=== PATIENT | male | born 1975 | race African-American/Black ===

== ENCOUNTER → 2016-11-30 | Outpatient (CLI) | payer OTHER ==
[~2016-11-30] VITALS: Ht 175.3 cm; Wt 78.1 kg
[~2016-11-30] MED LIST: AMBIEN 10 MG TA10 MG PO; BUDEPRION SR100 MG; BUDEPRION XL300 MG PO; BUPROPION XL150 MG PO; CYMBALTA20 MG PO; DEPAKENE250 MG; DEPAKENE250 MG PO; DESYREL50 MG PO; ERYTHROMYCIN E3.5 G1 OP; IBUPROFEN 600600 M1 PO; LEXAPRO 10 MG T10 M1 PO; LEXAPRO 10 MG T10 MG PO; LEXAPRO20 MG PO; LUNESTA3 MG PO; METHADONE HCL5 MG PO; NEURONTIN 300300 M1 PO; NEURONTIN 300M300 M2 PO; NORCO 5-325 TA1 EACH PO; PERCOCET; RESTORIL15 MG PO; TRAZODONE HCL100 MG PO; ZOFRAN ODT4 MG PO
[2016-11-30 08:18] VITALS: BP 137/76
== END | disposition home or self-care (01) ==
LOC: PAIN 06:47
DX: R51 Headache (principal); G89.29 Other chronic pain; Z98.890 Other specified postprocedural states

== ENCOUNTER → 2017-08-01 | Outpatient (CLI) | payer OTHER ==
[~2017-08-01] VITALS: Ht 175.3 cm; Wt 82.8 kg
--- NOTE | ~2017-08-01 | HPC ---
[facility] [address] [place] [address] PAIN MANAGEMENT CONSULTATION Name: MARY KATEPEEWEE Rai CASEY Room #: REG [facility]#: [id number] Admission: 08/01/17 Attend Phys: Jeff Nixon DO Discharge: Date of : 79 Report #: [id number] THIS REPORT FOR: //name// CC: FAM physician/PCP Jeff Pettit MD DATE OF SERVICE: 08/01/2017 REFERRING PHYSICIAN: Yannick Moya MD. CHIEF COMPLAINT: Chronic headaches. HISTORY OF PRESENT ILLNESS: As you know, the patient is a 41-year-old male who returns today in followup visit, now reporting pain score of 6/10. Despite this elevated pain score, he believes he is doing better overall. He is taking his medications appropriately and is having no side effects. He states that he has begun to do much more activities outside and he is very excited about his pain improvement. He recently was seen by his neurosurgeon, who advised the patient the ventricular shunt was working well and that surgery would not resolve his symptoms. It is believed his symptoms are exacerbated with changes in barometric pressure. Now that he knows that there are no major complications, he does wish to continue with current therapy. He will keep in touch with his neurosurgeon if changes in vision or headache worsens. ALLERGIES: PHENERGAN AND TOPIRAMATE. CURRENT MEDICATIONS: Methadone 5 mg 3 times a day; gabapentin 300 mg in the morning, 300 mg at noon, 600 mg at night; trazodone 150 mg p.o. at bedtime; duloxetine 30 mg once a day. SOCIAL HISTORY: The patient continues to smoke. He has extensive tobacco abuse history. Denies IV or illicit drug use. Denies any chronic alcohol use. Unaccompanied today. IMAGING: No new imaging available. PLAN: The patient has no osteoarthritis, no rheumatoid arthritis. His pain intensity is 6/10. He is not a fall risk, has not had a fall in the last 6 months. He is not on any blood thinners, not being treated for hypertension. He is on chronic opioids and is under contract with [facility]. Contract is renewed each year. He has a high potential for abuse and we monitor closely. His functional assessment tool shows pain impact score 53/70, severe. PHYSICAL EXAMINATION: [address] [address] PAIN MANAGEMENT CONSULTATION Name: PEEWEE HARTMANN Room #: [facility]#: [id number] Admission: 08/01/17 Attend Phys: Jeff Nixon DO Discharge: Date of : 79 Report #: [id number] VITAL SIGNS: Blood pressure 135/91, pulse 94, respiratory rate 16 and unlabored. The patient is 99% on room air. Height 5 feet 9 inches tall, weight 182.6 pounds, BMI calculated 27.0. GENERAL: Well-developed, well-nourished, well-hydrated, 41-year-old male, appearing his stated age. Pain is rated at 6/10. HEENT: Normocephalic, atraumatic. There are noted well-healed surgical scars over the calvarium. His pupils are equal and reactive. Sclerae nonicteric. EXTREMITIES: Show no clubbing, no cyanosis, no edema. ASSESSMENT: 1. Chronic headache secondary to intracerebral pressure changes. 2. Variable ventriculoperitoneal shunt complications. 3. Continued tobacco abuse. 4. Chronic intractable pain. PLAN: 1. The patient returns today in followup visit indicating that the recent exacerbation of his symptoms appear to be related to barometric pressure changes. The patient indicates his barometric pressure changes do change the cerebral spinal fluid pressure and thus leads to increased headache pain. He has been advised by his neurosurgeon not to do any changes in the HOSPICE AIDE shunt at this time. The patient states he understands. We will understand that his symptoms may exacerbate during the springtime and in the summer with changes in storms, but understands that this may be a possibility, does not wish to make any changes in therapy. 2. The patient has requested refills of his medications as he does find them beneficial. He is at the lowest most effective dose. We have provided the refills as follows: 3. The patient was provided prescription of methadone 5 mg dose 1 tab p.o. t.i.d. I have given the patient #90 releases of today, 4 weeks from today, 8 weeks from today. 4. The patient was provided refill prescription of gabapentin 300 mg dose, 1 tab in the morning, 1 tab at noon, 2 tabs at night, #120, 2 refills, 3 months' worth of medication. 5. The patient and I had a long discussion again about smoking cessation. I believe it is extremely important that patient look towards decreasing this activity. It is well known that this activity can exacerbate pain and we have requested the patient began discontinuation. He is looking into options. 5. We will see the patient back in followup visit 3 months. <ELECTRONICALLY SIGNED> By: Jeff Nixon DO 08/02/17 0845 [id number] Jeff Nixon DO /nt
[2017-08-01 10:17] VITALS: BP 135/91
== END ==
LOC: PAIN 07:04
DX: G43.919 Migraine, unspecified, intractable, without status migrainosus (principal); F17.200 Nicotine dependence, unspecified, uncomplicated; G89.29 Other chronic pain; T85.890A Other specified complication of nervous system prosthetic devices, implants and grafts, initial encounter; Z88.8 Allergy status to other drugs, medicaments and biological substances; Y83.9 Surgical procedure, unspecified as the cause of abnormal reaction of the patient, or of later complication, without mention of misadventure at the time of the procedure; Y92.89 Other specified places as the place of occurrence of the external cause

== ENCOUNTER → 2017-11-07 | Outpatient (CLI) | payer OTHER ==
[~2017-11-07] VITALS: Ht 175.3 cm; Wt 84.6 kg
--- NOTE | ~2017-11-07 | HPC ---
[facility] [address] [place] [address] PAIN MANAGEMENT CONSULTATION Name: PEEWEE HARTMANN Rai CASEY Room #: REG [facility]#: [id number] Admission: 11/07/17 Attend Phys: Jeff Nixon DO Discharge: Date of : 79 Report #: [id number] THIS REPORT FOR: //name// CC: [facility] physician/PCP Jeff Moya MD DATE OF SERVICE: 11/07/2017 CHIEF COMPLAINT: Chronic headaches. HISTORY OF PRESENT ILLNESS: As you know, the patient is a 42-year-old male returning in followup visit with pain level of 7/10. The patient states his pain medications work well despite the elevated pain score. He returns requesting refill on medications. He states the pain is pressure and aching in sensation, exacerbated with standing, strenuous exercises, stress and changes in weather, improves with medications and lying down in dark environments. He returns today in followup visit for medication management in hopes of continuing analgesic benefit. ALLERGIES: PHENERGAN AND TOPIRAMATE. CURRENT MEDICATIONS: Methadone 5 mg 3 times a day; gabapentin 300 mg morning, 300 mg at noon and 600 mg at night; trazodone 150 mg p.o. at bedtime and duloxetine 30 mg per day. SOCIAL HISTORY: The patient continues to smoke and has an extensive tobacco abuse history. Denies IV or illicit drug use. Denies any chronic alcohol use. He is unaccompanied. IMAGING: No new imaging available. PQRS: The patient has no osteoarthritis, no rheumatoid arthritis. He is not a fall risk and has not had a fall in 3 months. He is not treated for hypertension nor is he on blood thinners. He is on opioid therapy for greater than 6 weeks. He has a high potential of opioid abuse. Functional assessment tool indicates 53/70 as a pain impact score. PHYSICAL EXAMINATION: VITAL SIGNS: Blood pressure 135/97, pulse 106, respiratory rate 16 and unlabored. The patient is 97% on room air. Height 5 feet 9 inches tall, weight 186.6 pounds and BMI calculated 27.5. GENERAL: Well-developed, well-nourished, well-hydrated 42-year-old male, appearing stated age, pain is rated at 7/10. HEENT: Normocephalic and atraumatic. Pupils are equal, round and reactive. There are well healed surgical scars on the calvarium bilaterally. [facility] [address] [place] [address] PAIN MANAGEMENT CONSULTATION Name: PEEWEE HARTMANN JR Room #: REG [facility]#: [id number] Admission: 11/07/17 Attend Phys: Jeff Nixon DO Discharge: Date of : 79 Report #: [id number] EXTREMITIES: Show no clubbing, no cyanosis and no edema. ASSESSMENT: 1. Chronic headaches secondary to intracerebral pressure issues. 2. Variable ventriculoperitoneal shunt complications. 3. Opioid dependency. 4. Tobacco habituation. PLAN: 1. The patient returns today in followup visit requesting refill on medications. The patient states medications are working beneficially despite the elevated pain score of 7/10 today. He has requested refills to be provided over the next 3 months as he wishes to continue analgesic benefit. As part of our drug monitoring program, the patient will submit to a buccal drug screen today. The patient was advised that he would be undergoing this procedure. The patient indicates that we will likely find tetrahydrocannabinoid in his drug screen. I have discussed this with the patient today. I have advised him that if this is the case and we do find our methadone within the drug screen that we would recommend he discontinue the activity of smoking marijuana as this is an illegal activity and would preclude him from continuing opioid medications if he continues to participate in this activity. 2. The patient will contact the clinic in the next week and a half for the findings from the drug screen obtained today. We will be looking for any aberrancy or concerning findings in this drug screen. 3. The patient was provided prescription of methadone 5 mg dose 1 tab p.o. t.i.d., #90, releases of today, 4 weeks from today, 8 weeks from today, 3 months' worth of medication. 4. The patient was provided prescription of gabapentin 300 mg dose 1 tab in the morning, 1 tablet at noon and 2 tabs at night, #120, 2 refills. 5. We will see the patient back in followup visit in 3 months assuming no aberrancy is noted in his buccal drug screen. If aberrancy is noted, we will contact the patient and have him return to discuss the findings. <ELECTRONICALLY SIGNED> By: Jeff Nixon DO 11/08/17 0804 [id number] Jeff Nixon DO /nt
[2017-11-07 09:00] VITALS: BP 135/97
== END ==
LOC: PAIN 06:34
DX: G89.29 Other chronic pain (principal); R51 Headache; F11.20 Opioid dependence, uncomplicated; F17.200 Nicotine dependence, unspecified, uncomplicated; Z79.899 Other long term (current) drug therapy

== ENCOUNTER → 2018-04-10 | Outpatient (CLI) | payer OTHER ==
[~2018-04-10] VITALS: Ht 175.3 cm; Wt 85.5 kg
--- NOTE | ~2018-04-10 | HPC ---
[facility] [place] [address] PAIN MANAGEMENT CONSULTATION Name: PEEWEE HARTMANN Rai CASEY [id number] Admission: 04/10/18 Attend Phys: Danielle Harris Discharge: Date of : 79 Report #: [id number] THIS REPORT FOR: //name// CC: Danielle Harris [facility] physician/PCP DATE OF SERVICE: 04/10/2018 CHIEF COMPLAINT: Chronic headaches. HISTORY OF PRESENT ILLNESS: As you know, this is a 42-year-old gentleman returning for a followup visit in the pain clinic today for his chronic headaches. He is requesting a refill today. He tells me that his headaches have been horrible since he stopped using marijuana once he was instructed to do so at his last visit with Dr. Jeff Nixon. He tells me that he has not been sleeping and the only thing that helps his headache is sexual intercourse and the bello that he gets doing that. He tells me that the meds have not been working as well in the last month since he stopped his marijuana. He rates his pain at 6/10. He complains of pressure, achy feeling; worse with standing or exercise and stress; better when he is resting or lying down or in dark environment or using some kind of distraction. He tells me that he has not had his shunt adjusted since August. He was hopeful for increase in his medication today. ALLERGIES: PROMETHAZINE AND TOPAMAX. CURRENT LIST OF MEDICATIONS: Methadone 5 mg 3 times a day; gabapentin 300 mg 1 in the morning, 1 at noon, and 2 at night; trazodone 100 mg at bedtime and Cymbalta 20 mg once a day. PQRS: 1. No history of osteoarthritis or rheumatoid arthritis. 2. The patient's height is 5 feet 9 inches, weight 188, BMI is 27.8. 3. Vital signs: Blood pressure 149/100, pulse is 104, oxygen sat is 98, pain score is 6/10. 4. Fall risk: Denies dizziness, does not need help walking or standing, has not fallen in the last 3 months. 5. The patient denies blood thinners or blood pressure medicines. 6. history of hypertension. 7. He has opioid therapy greater than 6 weeks with opioid signed contract on the chart. 8. The patient's risk assessment tool is high. 9. His functional assessment is 53/70. 10. He has used recreational drug in the past, not currently. Does not smoke tobacco and does not drink alcohol. [address] [address] PAIN MANAGEMENT CONSULTATION Name: PEEWEE HARTMANN JR Room #: REG [facility]#: [id number] Admission: 04/10/18 Attend Phys: Danielle Harris Discharge: Date of : 79 Report #: [id number] We did check [facility] drug monitoring system. The patient is filling his methadone only from Dr. Jeff Nixon. No other medicines in the opioid family from any other doctors. The patient tells me he safeguards his medicines. PHYSICAL EXAMINATION: GENERAL: This is a well-developed, well-nourished, well-hydrated 42-year-old male, appears his stated age, rating his pain as 6/10. HEENT: Normocephalic and atraumatic. Pupils are equal, round and reactive. Well-healed surgical scar in his calvarium bilaterally. EXTREMITIES: Show no clubbing, no cyanosis, no edema. We reviewed the fact that opiate medications are being used to provide analgesia adequate to support activities of daily living, not attempting to achieve a specific pain score on the 0-10 Visual Analog Scale. The current opiate medications are providing sufficient analgesia to allow the patient to participate in activities of daily living. The patient is not exhibiting any aberrant behavior suggestive of drug diversion. The patient is not having any adverse reactions to medications. The patient is not suffering from daytime somnolence or mental acuity changes. The patient is managing opiate-induced constipation with appropriate [id number] agents and dietary considerations. The patient was counseled on concern for caution with operating a motor vehicle while using opiate medications. A physical exam was performed and the patient's functional status was evaluated. All patients with back pain were advised against the bed rest greater than 4 days and were advised to return to normal activities. Pain score assessment was noted and the treatment plan was reviewed with the patient. All current medications, both prescribed and OTC were reviewed and reconciled on the electronic medical record. Tobacco screening was accomplished and smoking cessation was advised when indicated. BMI was noted and diet/exercise modification was recommended for all patients following outside normal parameters. I reviewed with the patient today their responsibilities to safeguard prescription medications, reviewed their responsibility to utilize medications only as prescribed by the physician. They are to seek and receive pain medications only from 1 physician group ([facility]). They are to use 1 pharmacy and keep the clinic informed if they change pharmacies. Their responsibilities include making followup visits in a timely fashion and to avoid abrupt discontinuation of medication usage. Their responsibilities further include bringing their medications (bottles from the pharmacy with residual pills) to the visit for possible confirmation of pill counts and the patient understands it is their responsibility to submit to random drug screens to ensure both that the medications prescribed are present, and that no other controlled substances are present. All prescriptions provided today were [address] [address] PAIN MANAGEMENT CONSULTATION Name: PEEWEE HARTMANN JR Room #: [facility]#: [id number] Admission: 04/10/18 Attend Phys: Danielle Harris Discharge: Date of : 79 Report #: [id number] generated electronically. IMPRESSION: 1. Chronic headache secondary to intracerebral pressure issues. 2. Variable ventriculoperitoneal shunt complications. 3. Opioid dependency. PLAN: 1. The patient returns to the pain clinic today for followup for refill of his medications. He tells me that I was not as helpful as they have been in the past. Hopeful for an increase in his medications. I explained to the patient that per the CDC guidelines, his MME is 60 MME per day. The CDS would like people at 50, the next guideline is 90, so we are trying to keep him below that and he falls in the 60 MME per day. Therefore, we will not be able to increase his methadone. The patient is understanding this. I did talk that there is a possibility we could rotate to a different narcotic in the future, but no changes will be made today. The patient will be given a script of methadone 5 mg t.i.d., #90 for today, 4-week and 8-week. 2. The patient was given a prescription for his gabapentin 300 mg 4 pills a day, 1 in the morning, 1 midday, 2 at night, #90 with 2 additional refills. 3. We discussed possibly going back to see his neurosurgeon or having his shunt adjusted or possible surgery. The patient tells me his neurosurgeon does not want to do anything until he is not functioning, which I explained to the patient, you tell me that you are lying down all day, not doing anything, so that is not a function in his lifestyle and I encouraged him to make an appointment. 4. The patient also noticed to have blood pressure issues that have been elevated in the last several months, that could also contribute to his headache. Pressure today was 149/100, last month 135/97, time before that 135/91. So it continues to be elevated. The patient takes no blood pressure medicines. I encouraged him to see Donte Caban who he states is his primary care doctor to discuss these issues because they could definitely be impacting his headaches. The patient is agreeable with this and plans to make an appointment as soon as able. 5. The patient was seen in collaboration with Dr. Jeff Nixon today. <ELECTRONICALLY SIGNED> By: Danielle Harris 04/11/18 0710 [id number] Danielle Harris /ashwin
[2018-04-10 08:21] VITALS: BP 149/100
== END ==
LOC: PAIN 06:56
DX: T85.09XA Other mechanical complication of ventricular intracranial (communicating) shunt, initial encounter (principal); G93.5 Compression of brain; R51 Headache; F11.20 Opioid dependence, uncomplicated; Z98.2 Presence of cerebrospinal fluid drainage device

== ENCOUNTER → 2018-08-22 | Outpatient (CLI) | payer OTHER ==
[~2018-08-22] VITALS: Ht 175.3 cm; Wt 91.6 kg
[~2018-08-22] MED LIST changes: +FLONASE 0.05%50 MCG NASAL; +MAGOX 400400 MG PO; +REMERON15 MG PO
[2018-08-22 08:29] VITALS: BP 156/99
--- NOTE | 2018-08-22 08:33 | NUR ---
Pain Clinic Assessment: 1. History of Osteoarthritis: NONE History of Rheumatoid Arthritis: NONE 2. Height: 5 ft. 9 in. 175.3 cm. Weight: 202.0 lb. oz. 91.627 kg. Patient's BMI: 29.8 3. Vital Signs: BP: 156/99 Pulse: 95 Resp: 16 Temp: 02 Sat: 98 ECG Mon: 4. Pain Intensity: 5 5. Fall Risk: Dizziness: N Needs help standing or walking: N Fallen in the last 3 months: N Fall risk comments: 6. Patient on Blood Thinner: None 7. History of Hypertension: N 8. Opioid Therapy greater than 6 weeks: Y Opiate Contract Signed: 03/16/16 9. Risk Assessment Tool Provided: 14-HIGH 10. Functional Assessment Tool: 53/ 11. Recreational Drug Use: Never Drug Type: Tobacco Use: Never Smoker Tobacco Type: Amount or Packs/day: How Many Years: Alcohol Use: No Frequency: Quant:
--- NOTE | 2018-08-23 07:45 | HPC ---
[facility] [address] [place] [address] PAIN MANAGEMENT CONSULTATION Name: PEEWEE HARTMANN Rai CASEY [facility]: [facility] [id number] Admission: 08/22/18 ������������������ Attend Phys: Danielle Harris Discharge: ������������������ Date of : 79 Report #: [id number] THIS REPORT FOR: //name// CC: Danielle Harris [facility] physician/PCP DATE OF SERVICE: 08/22/2018 CHIEF COMPLAINT: Headaches. HISTORY OF PRESENT ILLNESS: As you know, this is a very pleasant 42-year-old gentleman who returns to the pain clinic today for his ongoing chronic headaches. He is requesting a refill of his medications. He tells me that his headaches are getting slightly better with the warmer weather and the changing in the weather patterns make his pain worse, so therefore with spurring he feels that he is having less headaches. He rates his pain score is 5/10. He tells me that he has gained some weight since his last visit, but he also has gained another dog at home, so he is walking 3 times a day, so he is hopeful with these additional walks that he will decrease his weight some and is enjoying being outside. His blood pressure remains elevated again today. He tells me he has not addressed this with his primary care doctor that he feels that if he loses weight that may actually help his blood pressure as well. The patient tells me that he had an EEG done ordered by Dr. Garcia, his psychologist at [facility] He tells me that he had left frontal lobe damage, has been ongoing for years and this doctor has had him doing brain quizzes on a website that should help him gain some of this brain damage back. He tells me that he understands now why he was not able to problem solve lots of things in high school is because of this area that has been affected in his brain. He tells me that he does these brain quizzes daily. The patient would like a refill of his methadone today as well as his gabapentin. He finds that these are very beneficial. ALLERGIES: PHENERGAN and TOPAMAX. CURRENT LIST OF MEDICATIONS: Gabapentin 300 mg 1 in the morning, one midday and two at night; methadone 5 mg 3 times a day; Remeron 15 mg at bedtime; Mag-Ox 400 daily; Flonase as needed; trazodone 100 mg at bedtime and Cymbalta 20 mg daily. PQRS: 1. He denies a history of osteoarthritis or rheumatoid arthritis. 2. Height is 5 feet 9 inches, weight is 202 and this is up from 188 three months ago. 3. Vital signs: Blood pressure 156/99, pulse is 95, respirations 16 and oxygen sat is 98. 4. Pain score is 5/10. 5. Fall risk. Denies dizziness. Does not help walking or standing, has not fallen in the last [address] [address] PAIN MANAGEMENT CONSULTATION Name: PEEWEE HARTMANN JR Room #: REG GUS Dill#: [id number] Admission: 08/22/18 ������������������ Attend Phys: Danielle Harris Discharge: ������������������ Date of : 79 Report #: [id number] 6. The patient is not on any blood thinners. He does not take any medicines for hypertension, though his blood pressure has been elevated for several months. 7. Opioid therapy is greater than 6 weeks; therefore, an opioid signed contract is on the chart. 8. His risk assessment tool is high. His functional assessment is 53/70. 9. Recreational drug use, he denies. He is not a smoker and does not drink alcohol. We did discuss the prescription monitoring system, the patient is filling appropriately by Dr. Jeff Nixon on a timely fashion. He does tell me that he safeguards all of his medications. There is also a recent drug screen on the chart. PHYSICAL EXAMINATION: GENERAL: This is a well-developed, well-nourished 42-year-old gentleman who appears his stated age, placing his pain score today at 5/10. HEENT: Normocephalic and atraumatic. Pupils equal, round and reactive. A well-healed surgical scar in his calvarium bilaterally. EXTREMITIES: No clubbing, no cyanosis and no edema. MUSCULOSKELETAL: The patient walks with a normal gait and muscle strength in upper and lower extremities appear equal at 5/5 in all major muscle groups. We reviewed the fact that opiate medications are being used to provide analgesia adequate to support activities of daily living, not attempting to achieve a specific pain score on the 0-10 Visual Analog Scale. The current opiate medications are providing sufficient analgesia to allow the patient to participate in activities of daily living. The patient is not exhibiting any aberrant behavior suggestive of drug diversion. The patient is not having any adverse reactions to medications. The patient is not suffering from daytime somnolence or mental acuity changes. The patient is managing opiate-induced constipation with appropriate unpw-liy-dcgblbi agents and dietary considerations. The patient was counseled on concern for caution with operating a motor vehicle while using opiate medications. A physical exam was performed and the patient's functional status was evaluated. All patients with back pain were advised against the bed rest greater than 4 days and were advised to return to normal activities. Pain score assessment was noted and the treatment plan was reviewed with the patient. All current medications, both prescribed and OTC were reviewed and reconciled on the electronic medical record. Tobacco screening was accomplished and smoking cessation was advised when indicated. BMI was noted and diet/exercise modification was recommended for all patients following outside normal parameters. I reviewed with the patient today their responsibilities to [address] [address] PAIN MANAGEMENT CONSULTATION Name: PEEWEE HARTMANN JR Room #: REG [facility].#: [id number] Admission: 08/22/18 ������������������ Attend Phys: Danielle Harris Discharge: ������������������ Date of : 79 Report #: [id number] prescription medications, reviewed their responsibility to utilize medications only as prescribed by the physician. They are to seek and receive pain medications only from 1 physician group ( [facility]). They are to use 1 pharmacy and keep the clinic informed if they change pharmacies. Their responsibilities include making followup visits in a timely fashion and to avoid abrupt discontinuation of medication usage. Their responsibilities further include bringing their medications (bottles from the pharmacy with residual pills) to the visit for possible confirmation of pill counts and the patient understands it is their responsibility to submit to random drug screens to ensure both that the medications prescribed are present, and that no other controlled substances are present. All prescriptions provided today were generated electronically. IMPRESSION: 1. 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 2. Variable peritoneal shunt complications. 3. Opioid dependency. PLAN: 1. We discussed treatment options with the patient today. The patient tells me that his headaches are slightly better since the weather has improved but continues to take his methadone 5 mg tablets. He tells me that he is not needing as many and he was able to go about 4 months between visits. I have instructed him to keep track of how many times he takes 3 tablets a day, how many times he takes 2 a day; so therefore, we are able to decrease the prescription. We are glad that he has been able to go longer with these medications, but we would like to make it, so that there is less medications out there and that would also decrease his MME per the CDC guidelines. Currently, he falls in the range of 45 MME per day on one calculation or 60 per day or 90 on the other. We would be able to decrease him to 2 tablets a day with occasional three that would decrease his morphine mEq. The patient is agreeable to try and keep track. He believes that it may only be 2-3 times a week that he is needing to take 3 tablets a day, but he will keep track of this and let us know at the next visit. Script was given today for methadone 5 mg t.i.d., #90 for today, for an 8-week release as well as gabapentin 300 mg 1 in the morning, one midday, two at night, quantity 120 with 2 additional refills. 2. The patient was again counseled on his elevated blood pressure. He is instructed to see his primary care doctor about this. It has been elevated for last several visits that we have seen him and today continues to be elevated at 156/99, which his last visit, it was 149/100. The patient tells me that he will try to lose weight, but he will contact his doctor. 3. The patient will be seen in 3 months' time or slightly longer if his [address] [address] PAIN MANAGEMENT CONSULTATION Name: PEEWEE HARTMANN JR Room #: REG GUS Dill#: [id number] Admission: 08/22/18 ������������������ Attend Phys: Danielle Harris Discharge: ������������������ Date of : 79 Report #: [id number] medications are able to last a long. 4. The patient is seen with Dr. Nixon in collaboration with his care today. ��������������������������������������������� <ELECTRONICALLY SIGNED> ���������������������������������������� By: Danielle Harris ��������������������������������������������� 08/23/18 0745 [id number] Danielle Harris /nt
== END ==
LOC: PAIN 06:56
DX: R51 Headache (principal); G89.29 Other chronic pain; G93.2 Benign intracranial hypertension; F11.20 Opioid dependence, uncomplicated; Z88.8 Allergy status to other drugs, medicaments and biological substances; Z79.899 Other long term (current) drug therapy

== ENCOUNTER → 2018-11-28 | Outpatient (CLI) | payer OTHER ==
[~2018-11-28] VITALS: Ht 175.3 cm; Wt 88.3 kg
[~2018-11-28] MED LIST changes: +AMBIEN 5 MG TABL5 M1 PO; +CHLORTHALIDONE25 MG PO
[2018-11-28 09:14] VITALS: BP 130/86
--- NOTE | 2018-11-28 09:29 | NUR ---
Pain Clinic Assessment: 1. History of Osteoarthritis: NONE History of Rheumatoid Arthritis: NONE 2. Height: 5 ft. 9 in. 175.3 cm. Weight: 194.6 lb. oz. 88.270 kg. Patient's BMI: 28.7 3. Vital Signs: BP: 130/86 Pulse: 94 Resp: 16 Temp: 02 Sat: 98 ECG Mon: 4. Pain Intensity: 5 5. Fall Risk: Dizziness: N Needs help standing or walking: N Fallen in the last 3 months: N Fall risk comments: 6. Patient on Blood Thinner: None 7. History of Hypertension: N 8. Opioid Therapy greater than 6 weeks: Y Opiate Contract Signed: 03/16/16 9. Risk Assessment Tool Provided: 14-HIGH 10. Functional Assessment Tool: 53/ 11. Recreational Drug Use: Never Drug Type: Tobacco Use: Never Smoker Tobacco Type: Amount or Packs/day: How Many Years: Alcohol Use: No Frequency: Quant:
--- NOTE | 2018-11-29 14:15 | HPC ---
[facility] [address] [place] [address] PAIN MANAGEMENT CONSULTATION Name: PEEWEE HARTMANN Room #: REG [facility]#: [id number] Admission: 11/28/18 ������������������ Attend Phys: Danielle Harris Discharge: ������������������ Date of : 79 Report #: [id number] THIS REPORT FOR: //name// CC: Danielle Harris [facility] physician/PCP DATE OF SERVICE: 11/28/2018 CHIEF COMPLAINT: Headaches. HISTORY OF PRESENT ILLNESS: As you know, this is a very pleasant 43-year-old gentleman who returns to the pain clinic today for his ongoing chronic headaches. He is here for a medication refill. He tells me that his headaches have been slightly improved since the weather has gotten better on days he does have problems. It is when the storms are coming in and that does increase his headache, but he feels like he has normalized since it is spring and summertime. Winter is his usually worse time. His pain score today is 5/10, mostly an achy pressure feeling in his head. He did not have his shunt changed at all this winter when he was having increased pain episodes. He tells me that standing and stressful activities make his pain worse. Medication, lying down in a dark environment are very helpful. He denies any problem with constipation or daytime sleepiness. He would like a refill of his medication of methadone and gabapentin today. ALLERGIES: PHENERGAN AND TOPAMAX. CURRENT LIST OF MEDICATIONS: Chlorthalidone, Ambien, gabapentin, methadone, mirtazapine, Mag-Ox, Flonase and trazodone. PQRS: He denies a history of osteoarthritis or rheumatoid arthritis. Height is 5 feet 9 inches, weight is 194 pounds, BMI is 28. Vital signs: Blood pressure 130/86, pulse is 94, respirations 16, oxygen sat is 98. Pain score is 5/10. Fall risk: Denies dizziness. Does not need help walking or standing. Has not fallen in the last three months. The patient is not on any blood thinners or medicine for hypertension. His opioid therapy is greater than six weeks; therefore, an opioid signed contract is on the chart. His risk assessment tool is high. His functional assessment is 53/70. He denies any recreational drug use. Does not smoke and does not use alcohol. We did check the prescription monitoring system. The patient is filling appropriately for his medications from our physician and is on time for them today. There is a recent drug screen on the chart that is appropriate for his medications as well. PHYSICAL EXAMINATION: GENERAL: This is a well-developed, well-nourished 43-year-[place] [address] PAIN MANAGEMENT CONSULTATION Name: PEEWEE HARTMANN Room #: REG [facility]ets#: [id number] Admission: 11/28/18 ������������������ Attend Phys: Danielle Harris Discharge: ������������������ Date of : 79 Report #: [id number] appears his stated age. Placing his pain score today at 5/10. HEENT: Normocephalic, atraumatic. Pupils equal, round and reactive to light. A well-healed surgical scar in his calvarium bilaterally. EXTREMITIES: No clubbing, no cyanosis, no edema. MUSCULOSKELETAL: The patient walks with a normal gait. His lower and upper extremity strength judged to be 5/5 with all major muscle groups. We reviewed the fact that opiate medications are being used to provide analgesia adequate to support activities of daily living, not attempting to achieve a specific pain score on the 0-10 Visual Analog Scale. The current opiate medications are providing sufficient analgesia to allow the patient to participate in activities of daily living. The patient is not exhibiting any aberrant behavior suggestive of drug diversion. The patient is not having any adverse reactions to medications. The patient is not suffering from daytime somnolence or mental acuity changes. The patient is managing opiate-induced constipation with appropriate ivfi-ayt-gatdzih agents and dietary considerations. The patient was counseled on concern for caution with operating a motor vehicle while using opiate medications. A physical exam was performed and the patient's functional status was evaluated. All patients with back pain were advised against the bed rest greater than 4 days and were advised to return to normal activities. Pain score assessment was noted and the treatment plan was reviewed with the patient. All current medications, both prescribed and OTC were reviewed and reconciled on the electronic medical record. Tobacco screening was accomplished and smoking cessation was advised when indicated. BMI was noted and diet/exercise modification was recommended for all patients following outside normal parameters. I reviewed with the patient today their responsibilities to safeguard prescription medications, reviewed their responsibility to utilize medications only as prescribed by the physician. They are to seek and receive pain medications only from 1 physician group ( [facility]). They are to use 1 pharmacy and keep the clinic informed if they change pharmacies. Their responsibilities include making followup visits in a timely fashion and to avoid abrupt discontinuation of medication usage. Their responsibilities further include bringing their medications (bottles from the pharmacy with residual pills) to the visit for possible confirmation of pill counts and the patient understands it is their responsibility to submit to random drug screens to ensure both that the medications prescribed are present, and that no other controlled substances are present. All prescriptions provided today were generated electronically. IMPRESSION: 1. 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 2. Superior peritoneal shunt complications. [place] [id number] PAIN MANAGEMENT CONSULTATION Name: PEEWEE HARTMANN JR [facility] [id number] Admission: 11/28/18 ������������������ Attend Phys: Danielle Harris Discharge: ������������������ Date of : 79 Report #: [id number] 3. Opioid dependency. 4. Complex medical management under terms of written opioid agreement. PLAN: 1. We discussed treatment options with the patient today. Scripts given today for his methadone 5 mg three times a day. He has not been able to decrease these to two times a day, which we have tried to encourage him to do. Scripts given for #90 for today, a 4-week release and 8-week release. The patient does fall in the range of according to the CDC guidelines that allow him to do this to be seen every three months. 2. Refill of gabapentin 300 mg one tablet in the morning, one tablet midday and two at night, quantity 120 with two additional refills. 3. The patient is seen in collaboration with Dr. Jeff Nixon today. The patient will follow up in three months' time. ��������������������������������������������� <ELECTRONICALLY SIGNED> ���������������������������������������� By: Danielle Harris ��������������������������������������������� 11/29/18 1415 [id number] Danielle Harris /nt
== END ==
LOC: PAIN 06:49
DX: R51 Headache (principal); G89.29 Other chronic pain; Z79.891 Long term (current) use of opiate analgesic

== ENCOUNTER → 2019-03-06 | Outpatient (CLI) | payer OTHER ==
[~2019-03-06] VITALS: Ht 175.3 cm; Wt 89.4 kg
[2019-03-06 09:37] VITALS: BP 130/93
--- NOTE | 2019-03-06 09:44 | NUR ---
Pain Clinic Assessment: 1. History of Osteoarthritis: hands History of Rheumatoid Arthritis: NONE 2. Height: 5 ft. 9 in. 175.3 cm. Weight: 197.0 lb. oz. 89.359 kg. Patient's BMI: 29.1 3. Vital Signs: BP: 130/93 Pulse: 81 Resp: 16 Temp: 02 Sat: 98 ECG Mon: 4. Pain Intensity: 4 5. Fall Risk: Dizziness: N Needs help standing or walking: N Fallen in the last 3 months: N Fall risk comments: 6. Patient on Blood Thinner: None 7. History of Hypertension: Y 8. Opioid Therapy greater than 6 weeks: Y Opiate Contract Signed: 03/16/16 9. Risk Assessment Tool Provided: HIGH--12 10. Functional Assessment Tool: 11. Recreational Drug Use: Never Drug Type: Tobacco Use: Never Smoker Tobacco Type: Amount or Packs/day: How Many Years: Alcohol Use: No Frequency: Quant:
--- NOTE | 2019-03-07 14:03 | HPC ---
[facility] [address] [place] [address] PAIN MANAGEMENT CONSULTATION Name: PEEWEE HARTMANN Room #: REG [facility]#: [id number] Admission: 03/06/19 Attend Phys: Danielle Harris Discharge: Date of : 79 Report #: [id number] THIS REPORT FOR: //name// CC: Danielle Harris [facility] physician/PCP EDILMA PONCE DO DATE OF SERVICE: 03/06/2019 CHIEF COMPLAINT: Headaches. HISTORY OF PRESENT ILLNESS: This is a pleasant 43-year-old gentleman, as you are aware, suffers from chronic ongoing headaches. He is here for medication refill today. He tells me that he was able to have his shunt adjusted earlier this summer since we have last seen him that did cause his headaches to even become worse than he had been experiencing, but then they reset his shunt a week later, and since that time, his headaches have been greatly improved along with his medication therapy. He tells me he is having a good day today, rating his pain score 4/10. It is a pressure, aching feeling in his head that is worse with weather changes and strenuous activity, but as long as he lies down in a dark environment and uses his medication, it is quite beneficial. He denies any problems with constipation or daytime sleepiness. Today, he would like a refill of his methadone. ALLERGIES: PHENERGAN AND TOPAMAX. CURRENT LIST OF MEDICATIONS: Methadone 5 mg 3 times a day; gabapentin 300 mg 1 in the morning, 1 midday, 2 at night; chlorthalidone 25 mg daily; Ambien 5 mg at bedtime; Remeron 15 mg at bedtime; Mag-Ox; Flonase and trazodone 100 mg at bedtime. PQRS: 1. He denies history of osteoarthritis or rheumatoid arthritis. 2. Height is 5 feet 9 inches, weight is 197, BMI is 29. 3. Vital signs 130/93, pulse is 81, respirations 16, oxygen sat is 98. 4. Pain score is 4/10. 5. Denies dizziness, does not need help walking or standing, has not fallen in the last 3 months. 6. The patient is not on any blood thinners. He does take medicine for hypertension. 7. Opioid therapy is greater than 6 weeks; therefore, an opioid signed contract is on the chart. Risk assessment tool is high. Functional assessment is 38/70. 8. Recreational drug use, he denies. He is not a smoker and does not drink alcohol. According to the prescription monitoring system, the patient is filling [address] [address] PAIN MANAGEMENT CONSULTATION Name: MARY KATEPEEWEE Rai CASEY Room #: REG [facility]#: [id number] Admission: 03/06/19 Attend Phys: Danielle Harris Discharge: Date of : 79 Report #: [id number] appropriately and is on time for his medication refill today. We will check a recent drug screen on this patient as well today. PHYSICAL EXAMINATION: GENERAL: This is a well-developed, well-nourished 43-year-old gentleman who appears his stated age, placing his pain score today at 4/10. HEENT: Normocephalic, atraumatic. Pupils equal, round and reactive to light. He has a well-healed surgical scar in his calvarium bilaterally. EXTREMITIES: No clubbing, no cyanosis, no edema. MUSCULOSKELETAL: The patient walks with a normal gait. His lower and upper extremity strength judged to be 5/5. We reviewed the fact that opiate medications are being used to provide analgesia adequate to support activities of daily living, not attempting to achieve a specific pain score on the 0-10 Visual Analog Scale. The current opiate medications are providing sufficient analgesia to allow the patient to participate in activities of daily living. The patient is not exhibiting any aberrant behavior suggestive of drug diversion. The patient is not having any adverse reactions to medications. The patient is not suffering from daytime somnolence or mental acuity changes. The patient is managing opiate-induced constipation with appropriate suzu-mvr-ohuxrlz agents and dietary considerations. The patient was counseled on concern for caution with operating a motor vehicle while using opiate medications. A physical exam was performed and the patient's functional status was evaluated. All patients with back pain were advised against the bed rest greater than 4 days and were advised to return to normal activities. Pain score assessment was noted and the treatment plan was reviewed with the patient. All current medications, both prescribed and OTC were reviewed and reconciled on the electronic medical record. Tobacco screening was accomplished and smoking cessation was advised when indicated. BMI was noted and diet/exercise modification was recommended for all patients following outside normal parameters. I reviewed with the patient today their responsibilities to safeguard prescription medications, reviewed their responsibility to utilize medications only as prescribed by the physician. They are to seek and receive pain medications only from 1 physician group ([facility]). They are to use 1 pharmacy and keep the clinic informed if they change pharmacies. Their responsibilities include making followup visits in a timely fashion and to avoid abrupt discontinuation of medication usage. Their responsibilities further include bringing their medications (bottles from the pharmacy with residual pills) to the visit for possible confirmation of pill counts and the patient understands it is their responsibility to submit to random drug screens to ensure both that the medications prescribed are present, and that no other controlled substances are present. All prescriptions provided today were [facility] [place] [address] [place] [address] PAIN MANAGEMENT CONSULTATION Name: PEEWEE HARTMANN Rai CASEY Room [facility] [id number] Admission: 03/06/19 Attend Phys: Danielle Harris Discharge: Date of : 79 Report #: [id number] generated electronically. IMPRESSION: 1. 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 2. Superior peritoneal shunt complications. 3. Opioid dependency. 4. Complex medical management under terms of written opioid agreement. PLAN: 1. We discussed treatment options with the patient today. The patient finds his methadone 5 mg 3 times a day, very beneficial. According to the CDC guidelines, this places him at 40 morphine mEq; therefore, we will refill his medications with #90 for release today, 4-week and 8-week. 2. We also will refill his gabapentin 300 mg tablets, #120, with 2 additional refills. 3. We tried to obtain a urine specimen from him today. He did drink water first couple of hours and was not able to produce a urine specimen. We did then obtain a buccal swab from him, which we did reiterate that this has a high potency for having negative outcomes. If it does become negative, we will have to address this issue. The patient understands, prior to giving us this oral specimen, since he was unable to urinate. 4. This case was discussed with Dr. Edilma Ponce who did see the patient as well today. The patient will return in 3 months. <ELECTRONICALLY SIGNED> By: Danielle Harris 03/07/19 1403 1133 0151 Danielle Harris /nt
== END ==
LOC: PAIN 07:00
DX: R51 Headache (principal); F11.20 Opioid dependence, uncomplicated

== ENCOUNTER → 2019-06-11 | Outpatient (CLI) | payer OTHER ==
[~2019-06-11] VITALS: Ht 175.3 cm; Wt 84.7 kg
[2019-06-11 09:21] VITALS: BP 143/86
--- NOTE | 2019-06-11 09:41 | NUR ---
Pain Clinic Assessment: 1. History of Osteoarthritis: hands History of Rheumatoid Arthritis: NONE 2. Height: 5 ft. 9 in. 175.3 cm. Weight: 186.8 lb. oz. 84.732 kg. Patient's BMI: 27.6 3. Vital Signs: BP: 143/86 Pulse: 101 Resp: 16 Temp: 02 Sat: 98 ECG Mon: 4. Pain Intensity: 4 5. Fall Risk: Dizziness: N Needs help standing or walking: N Fallen in the last 3 months: N Fall risk comments: 6. Patient on Blood Thinner: None 7. History of Hypertension: Y 8. Opioid Therapy greater than 6 weeks: Y Opiate Contract Signed: 03/16/16 9. Risk Assessment Tool Provided: HIGH--12 10. Functional Assessment Tool: 11. Recreational Drug Use: Never Drug Type: Tobacco Use: Never Smoker Tobacco Type: Amount or Packs/day: How Many Years: Alcohol Use: No Frequency: Quant:
--- NOTE | 2019-06-11 15:39 | HPC ---
[facility] [address] [place] [address] PAIN MANAGEMENT CONSULTATION Name: PEEWEE HARTMANN Room #: REG [facility]#: [id number] Admission: 06/11/19 Attend Phys: Danielle Harris Discharge: Date of : 79 Report #: [id number] THIS REPORT FOR: //name// CC: Danielle Harris [facility] physician/PCP Jeff Nixon DO DATE OF SERVICE: 06/11/2019 CHIEF COMPLAINT: Chronic intractable headaches. HISTORY OF PRESENT ILLNESS: This is a 43-year-old gentleman who returns to the pain clinic today for refill of his medications that he uses to help treat his ongoing chronic headaches that he experiences as a result of his intracranial pressure issues. He does have a peritoneal shunt that he does frequently have adjusted. Currently, he reports he is doing quite well, rating his pain score a 4/10. His pain is exacerbated by strenuous activities and prolonged standing. He feels that the medications are very beneficial as well as a dark environment. He denies any problems with daytime sleepiness or constipation as a result of his methadone, he takes 5 mg 3 times a day and is requesting refills today. ALLERGIES: PROMETHAZINE AND TOPAMAX. CURRENT LIST OF MEDICATIONS: Methadone 5 mg t.i.d.; gabapentin 300 mg 1 in the morning, 1 mid day, 2 at night; chlorthalidone; Ambien; Remeron; magnesium oxide; and trazodone. PQRS: 1. The patient has a history of osteoarthritis in his hands. He denies any rheumatoid arthritis. 2. Height is 5 feet 9 inches, weight is 186, BMI is 27. 3. Vital signs: 143/86, pulse is 101, respirations 16, oxygen sat is 98. 4. Pain score is 4/10. 5. Denies dizziness, does not need help walking or standing, has not fallen in the last 3 months. He is not on any blood thinners, but does take medicine for hypertension. 6. Opiate therapy is greater than 6 weeks; therefore, an opioid signed contract is on the chart. His risk assessment tool is high. Functional assessment is 38/70. 7. Recreational drug use, he denies. He is not a smoker and does not drink alcohol. According to the prescription monitoring system, the patient is due next week to fill his methadone. There is a recent drug screen on the chart that was positive for his methadone. He has no aberrant fills in his opioids. According to the CDC guidelines, his morphine milliequivalent is 45 per day[address] [address] PAIN MANAGEMENT CONSULTATION Name: PEEWEE HARTMANN JR Room #: REG [facility]#: [id number] Admission: 06/11/19 Attend Phys: Danielle Harris Discharge: Date of : 77 Report #: [id number] PHYSICAL EXAMINATION: GENERAL: This is alert and orientated, well-developed 43-year-old gentleman who appears his stated age, placing his current pain score at 4/10 today. HEENT: Normocephalic, atraumatic. Pupils equal, round and reactive to light. He has a well-healed surgical scar in his calvarium bilaterally. EXTREMITIES: No clubbing, no cyanosis, no edema. MUSCULOSKELETAL: He has a normal gait. Lower extremity strength judged to be equal and symmetrical at 5/5. We reviewed the fact that opiate medications are being used to provide analgesia adequate to support activities of daily living, not attempting to achieve a specific pain score on the 0-10 Visual Analog Scale. The current opiate medications are providing sufficient analgesia to allow the patient to participate in activities of daily living. The patient is not exhibiting any aberrant behavior suggestive of drug diversion. The patient is not having any adverse reactions to medications. The patient is not suffering from daytime somnolence or mental acuity changes. The patient is managing opiate-induced constipation with appropriate zlmm-xmo-gdxyczj agents and dietary considerations. The patient was counseled on concern for caution with operating a motor vehicle while using opiate medications. A physical exam was performed and the patient's functional status was evaluated. All patients with back pain were advised against the bed rest greater than 4 days and were advised to return to normal activities. Pain score assessment was noted and the treatment plan was reviewed with the patient. All current medications, both prescribed and OTC were reviewed and reconciled on the electronic medical record. Tobacco screening was accomplished and smoking cessation was advised when indicated. BMI was noted and diet/exercise modification was recommended for all patients following outside normal parameters. I reviewed with the patient today their responsibilities to safeguard prescription medications, reviewed their responsibility to utilize medications only as prescribed by the physician. They are to seek and receive pain medications only from 1 physician group ( [facility]). They are to use 1 pharmacy and keep the clinic informed if they change pharmacies. Their responsibilities include making followup visits in a timely fashion and to avoid abrupt discontinuation of medication usage. Their responsibilities further include bringing their medications (bottles from the pharmacy with residual pills) to the visit for possible confirmation of pill counts and the patient understands it is their responsibility to submit to random drug screens to ensure both that the medications prescribed are present, and that no other controlled substances are present. All prescriptions provided today were generated electronically. [address] [address] PAIN MANAGEMENT CONSULTATION Name: PEEWEE HARTMANN JR Room #: REG [facility] Shannan#: [id number] Admission: 06/11/19 Attend Phys: Danielle Harris Discharge: Date of : 77 Report #: [id number] IMPRESSION: 1. Chronic headaches secondary to intracranial pressure. 2. Superior peritoneal shunt. 3. Opioid dependency. 4. Complex medical management under terms of written opioid agreement. PLAN: 1. We discussed treatment options with the patient today. The patient finds his methadone very beneficial in controlling his headaches. We will refill his methadone 5 mg 3 times a day, sending these scripts electronically for 3 months, #90 as well as gabapentin 300 mg, #120 with 2 additional refills. 2. The patient was told that his oral swab was positive for his medications that we performed last visit for a random drug screen. The patient was prepared to give another specimen today that is why he is here early for a refill, but I explained to him that his medicines were positive; therefore, we will give him another 3 months of medicine and the patient will return in 3 months. The patient is seen in collaboration with Dr. Jeff Nixon today. <ELECTRONICALLY SIGNED> By: Danielle Harris 06/11/19 1539 [id number] Danielle Harris /nt
== END ==
LOC: PAIN 06:47
DX: R51 Headache (principal); F11.20 Opioid dependence, uncomplicated; Z98.2 Presence of cerebrospinal fluid drainage device; Z88.8 Allergy status to other drugs, medicaments and biological substances; Z79.899 Other long term (current) drug therapy

== ENCOUNTER → 2020-01-14 | Outpatient (CLI) | payer OTHER ==
[~2020-01-14] VITALS: Ht 175.3 cm; Wt 89.8 kg
[2020-01-14 10:40] VITALS: BP 161/87
--- NOTE | 2020-01-14 11:00 | NUR ---
Pain Clinic Assessment: 1. History of Osteoarthritis: hands History of Rheumatoid Arthritis: NONE 2. Height: 5 ft. 9 in. 175.3 cm. Weight: 198.0 lb. oz. 89.812 kg. Patient's BMI: 29.2 3. Vital Signs: BP: 161/87 Pulse: 94 Resp: 14 Temp: 02 Sat: 100 ECG Mon: 4. Pain Intensity: 5 5. Fall Risk: Dizziness: N Needs help standing or walking: N Fallen in the last 3 months: N Fall risk comments: 6. Patient on Blood Thinner: None 7. History of Hypertension: Y 8. Opioid Therapy greater than 6 weeks: Y Opiate Contract Signed: 03/16/16 9. Risk Assessment Tool Provided: HIGH--12 10. Functional Assessment Tool: 36 11. Recreational Drug Use: Never Drug Type: Tobacco Use: Never Smoker Tobacco Type: Amount or Packs/day: How Many Years: Alcohol Use: No Frequency: Quant:
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
== END ==
LOC: PAIN 06:56
PROVIDERS: ATTEND Clinical Nurse Specialist Adult Health
DX: G89.29 Other chronic pain (principal); R51 Headache; Z88.8 Allergy status to other drugs, medicaments and biological substances; Z68.29 Body mass index [BMI] 29.0-29.9, adult; Z98.890 Other specified postprocedural states; Z79.891 Long term (current) use of opiate analgesic; Z79.899 Other long term (current) drug therapy

== ENCOUNTER → 2020-06-24 | Outpatient (CLI) | payer OTHER ==
[~2020-06-24] VITALS: Ht 175.3 cm; Wt 89.4 kg
[~2020-06-24] MED LIST changes: +MELATONIN10 M1 PO
--- NOTE | ~2020-06-24 | HPC ---
[facility] [place] [address] PAIN MANAGEMENT CONSULTATION Name: PEEWEE HARTMANN JR Room #: REG [facility]#: [id number] Admission: 06/24/20 Attend Phys: Jeff Nixon DO Discharge: Date of : 79 Report #: [id number] THIS REPORT FOR: cc: Leonel Pettit MD, Timothy J. MD Johnson, James E. DO ~ DATE OF SERVICE: 06/24/2020 REFERRING PHYSICIAN: Leonel Pettit MD CHIEF COMPLAINT: Chronic intractable head pain. HISTORY OF PRESENT ILLNESS: As you know, the patient is a 44-year-old male who returns today in followup visit for medication management. He is taking methadone 5 mg 3 times a day for chronic headaches. As you are aware, the patient suffers from a variable shunt pressure issues that requires medication management on a periodic basis. He does very well with methadone therapy. He is denying side effects with its use. He states that without the medication, his pain is intolerable, placing pain anywhere from 6-8/10. He has not had an adjustment in his [employer] shunts in some time, which is a good sign, indicating that his shunt pressures are remaining stable, he has not had an exacerbation of pain. He returns today requesting refill of medications. He is denying side effects of sleepiness, disorientation, confusion, mental slowing. ALLERGIES: PROMETHAZINE, TOPAMAX. CURRENT MEDICATIONS: Methadone 5 mg t.i.d., gabapentin 300 mg 3 times a day, chlorthalidone 25 mg once a day, mirtazapine 15 mg p.o. at bedtime, trazodone 100 mg p.o. at bedtime. SOCIAL HISTORY: The patient continues to smoke. Denies IV or illicit drug use. Denies any chronic alcohol use. He is unaccompanied today. IMAGING: No new imaging available. PQRS: The patient has no known osteoarthritis except for his hands. Denies rheumatoid arthritis. He is placing current pain intensity of 6/10, is not at fall risk, has not had a fall in last 3 months. He is not on blood thinners, but is treated for hypertension. He is on chronic opioids and has a high opioid addiction potential based on our assessment. He is placing pain impact at 36/70, moderate interference of daily activities secondary to pain. PHYSICAL EXAMINATION: VITAL SIGNS: Blood pressure 139/102, pulse ____, respiratory rate 16 and unlabored. The patient is 98% on room air. Height 5 feet 9 inches tall, weight 197 pounds, BMI calculated 29.1. [place] [address] PAIN MANAGEMENT CONSULTATION Name: PEEWEE HARTMANN Room #: [facility]#: [id number] Admission: 06/24/20 Attend Phys: Jeff Nixon DO Discharge: Date of : 79 Report #: [id number] GENERAL: Well-developed, well-nourished, well-hydrated 44-year-old male, appearing stated age, pain is rated today 6/10. HEENT: Normocephalic and atraumatic. Pupils are equal, round and reactive. There are noted surgical changes to his calvarium. He is wearing a mask in compliance with COVID-19 regulations. EXTREMITIES: Show no clubbing, no cyanosis. No appreciable edema. ASSESSMENT: 1. Chronic headaches secondary to variable intracranial pressure. 2. Superior peritoneal shunt variable pressure device. 3. Opioid dependency. 4. Complicated medication management utilizing scheduled medications. PLAN: 1. The patient returns today in followup visit requesting refill on medications. He feels medications are working beneficially for pain control. He has been able to begin weaning down on his opioid medication therapy. He wishes to continue with no more than 3 a day tablets, but is trying to reduce to 2 a day and hopefully down to 1 a day, assuming his pain remains well controlled. Today, he is being able to extend the medications provided in March until this month, which would indicate less consistent use of therapy. We have agreed to provide the patient with the medication again today in its current prescription form with the understanding that if he can wean back on medication will provide less the next appointment. 2. We reviewed the fact that opiate medications are being used to provide analgesia adequate to support activities of daily living, not attempting to achieve a specific pain score on the 0-10 Visual Analog Scale. The current opiate medications are providing sufficient analgesia to allow the patient to participate in activities of daily living. The patient is not exhibiting any aberrant behavior suggestive of drug diversion. The patient is not having any adverse reactions to medications. The patient is not suffering from daytime somnolence or mental acuity changes. The patient is managing opiate-induced constipation with appropriate [id number] agents and dietary considerations. The patient was counseled on concern for caution with operating a motor vehicle while using opiate medications. A physical exam was performed and the patient's functional status was evaluated. All patients with back pain were advised against the bed rest greater than 4 days and were advised to return to normal activities. Pain score assessment was noted and the treatment plan was reviewed with the patient. All current medications, both prescribed and OTC were reviewed and reconciled on the electronic medical record. Tobacco screening was accomplished and smoking cessation was advised when indicated. BMI was noted and diet/exercise modification was recommended for all patients following outside normal parameters. [address] [place] [address] PAIN MANAGEMENT CONSULTATION Name: PEEWEE HARTMANN Rai CASEY Room #: REG [facility].#: [id number] Admission: 06/24/20 Attend Phys: Jeff Nixon DO Discharge: Date of : 79 Report #: [id number] I reviewed with the patient today their responsibilities to safeguard prescription medications, reviewed their responsibility to utilize medications only as prescribed by the physician. They are to seek and receive pain medications only from 1 physician group ( [facility]). They are to use 1 pharmacy and keep the clinic informed if they change pharmacies. Their responsibilities include making followup visits in a timely fashion and to avoid abrupt discontinuation of medication usage. Their responsibilities further include bringing their medications (bottles from the pharmacy with residual pills) to the visit for possible confirmation of pill counts and the patient understands it is their responsibility to submit to random drug screens to ensure both that the medications prescribed are present, and that no other controlled substances are present. All prescriptions provided today were generated electronically. 3. The patient was provided prescription of methadone 5 mg dose 1 tablet p.o. t.i.d., given the patient #90 tablets, releasing today, 4 weeks from today, 8 weeks from today, 3 months' worth of medication. 4. The patient was provided refill prescription of gabapentin 300 mg dose 1 tablet p.o. q.8 hours. I have given the patient #90 with 2 refills, 3 months' worth of medication. 5. The patient will submit to a urine drug screen at next visit. By: [id number] Jeff Nixon DO /nt
[2020-06-24 12:32] VITALS: BP 139/102
--- NOTE | 2020-06-24 12:36 | NUR ---
Pain Clinic Assessment: 1. History of Osteoarthritis: hands History of Rheumatoid Arthritis: NONE 2. Height: 5 ft. 9 in. 175.3 cm. Weight: 197.0 lb. oz. 89.359 kg. Patient's BMI: 29.1 3. Vital Signs: BP: 139/102 Pulse: 100 Resp: 16 Temp: 02 Sat: 98 ECG Mon: 4. Pain Intensity: 6 5. Fall Risk: Dizziness: N Needs help standing or walking: N Fallen in the last 3 months: N Fall risk comments: 6. Patient on Blood Thinner: None 7. History of Hypertension: Y 8. Opioid Therapy greater than 6 weeks: Y Opiate Contract Signed: 03/16/16 9. Risk Assessment Tool Provided: HIGH--12 10. Functional Assessment Tool: 36 11. Recreational Drug Use: Never Drug Type: Tobacco Use: Never Smoker Tobacco Type: Amount or Packs/day: How Many Years: Alcohol Use: No Frequency: Quant:
== END ==
LOC: PAIN 06:53
PROVIDERS: ATTEND Anesthesiology Pain Medicine
DX: G89.4 Chronic pain syndrome (principal); R51.9 Headache, unspecified; Z79.891 Long term (current) use of opiate analgesic; Z79.899 Other long term (current) drug therapy